=== PATIENT | male | born 1935 | race Caucasian/White ===

== ENCOUNTER 2017-05-29 11:27 | Emergency (ER) | payer BC, MEDICARE ==
--- NOTE | 2017-05-29 12:23 | RAD ---
INDICATION: Intracranial injury COMPARISON: None TECHNIQUE: Noncontrast axial source images were acquired from the skull base to the vertex. FINDINGS: Ventricles/sulci: There is mild age-related cortical atrophy with compensatory dilatation of the CSF spaces. Brain parenchyma: There is no focal parenchymal finding, evidence of intracranial mass, or intracranial mass effect. Intracranial hemorrhage:None. Extra-axial spaces: There are no abnormal extra axial fluid collections or evidence of extra-axial mass. Calvarium: There is no calvarial fracture or other calvarial abnormality. Scalp: There is no evidence of scalp or extracalvarial soft tissue abnormality. Paranasal sinuses/mastoid: The paranasal sinuses and mastoid air cells are clear. Other: Incidental bilateral basal ganglia calcifications. IMPRESSION: No acute intracranial findings
[2017-05-29 13:01] VITALS: BP 160/77
--- NOTE | 2017-05-29 16:40 | ED ---
Head Injury - HPI Summary HPI Summary: Patient is an otherwise healthy 81-year-old male who presents to the ED after a fall while skiing approximately 3 hours prior to arrival. Head injury is to the left parietal area without lesions, discolorations, or cephalohematoma. Immediately following the incident, he endorses some confusion on where he was. This lasted a few minutes. at bedside states he was unable to recall which trail he was on and even stated that he was slightly confused. Denies any memory loss, or loss of consciousness. He is not on blood thinners and denies any other injury with the fall. Denies sensitivity to light, headache, neck pain. Symptoms were aggravated by nothing and alleviated with spontaneous resolution prior to arrival to the ED. He is asymptomatic on arrival. - History Of Current Complaint Chief Complaint: EDHeadInjury Stated Complaint: FALL SKIING Time Seen by Provider: 05/29/17 11:46 Hx Obtained From: Patient, Family/[employer] Mechanism Of Injury: Direct Blow Onset/Duration: Started Hours Ago Onset of Pain: Minutes Severity Currently: Moderate Severity Initially: Moderate Pain Intensity: 0 Pain Scale Used: 0-10 Numeric Location of Head Injury: Parietal - Left Aggravating Factor(s): Other: - Nothing nothing Alleviating Factor(s): Rest Associated Signs And Symptoms: Confusion - Immediately following the incident, spontaneously resolved after several minutes, Other: - Dizziness, spontaneously resolved - Risk Factors SDH Risk Factor: Male, Recent Trauma - Allergies/Home Medications Allergies/Adverse Reactions: Allergies Allergy/AdvReac Type Severity Reaction Status Date / Time poison tyler extract Allergy Rash Verified 05/29/17 12:23 Home Medications: Home Medications NK [No Home Medications Reported] 05/29/17 [History Confirmed 05/29/17] PMH/Surg Hx/FS Hx/Imm Hx Previously Healthy: Yes - Cancer History Cancer Type, Location and Year: prostate, melanoma - Surgical History Surgery Procedure, Year, and Place: prostatectomy Infectious Disease History: No Infectious Disease History: Denies: Traveled Outside the [place] in Last 30 Days - Social History Occupation: Unemployed Lives: With Family Alcohol Use: Daily Hx Substance Use: No Substance Use Type: Reports: None Hx Tobacco Use: Yes Smoking Status (MU): Former Smoker Review of Systems Constitutional: Negative Negative: Fever, Chills, Fatigue, Skin Diaphoresis Negative: Photophobia, Blurred Vision, Diplopia Negative: Palpitations, Chest Pain Negative: Shortness Of Breath, Cough Negative: Arthralgia, Myalgia Negative: Bruising Negative: Headache, Weakness - dizziness which spontaneously resolved following the incident Psychological: Normal All Other Systems Reviewed And Are Negative: Yes Physical Exam Triage Information Reviewed: Yes Vital Signs On Initial Exam: Initial Vitals Temp Pulse Resp BP Pulse Ox 97.8 F 54 18 184/75 97 05/29/17 11:33 05/29/17 11:33 05/29/17 11:33 05/29/17 11:33 05/29/17 11:33 Vital Signs Reviewed: Yes Appearance: Positive: Well-Appearing, Well-Nourished Skin: Positive: Warm, Skin Color Reflects Adequate Perfusion Head/Face: Positive: Normal Head/Face Inspection Eyes: Positive: EOMI, YO, Conjunctiva Clear Neck: Positive: Nontender, No Lymphadenopathy Respiratory/Lung Sounds: Positive: Breath Sounds Present Cardiovascular: Positive: RRR, Pulses are Symmetrical in both Upper and Lower Extremities Musculoskeletal: Positive: Strength/ROM Intact Neurological: Positive: Speech Normal Psychiatric: Positive: Affect/Mood Appropriate AVPU Assessment: Alert Diagnostics - Vital Signs Vital Signs Temp Pulse Resp BP Pulse Ox 05/29/17 13:00 98.9 F 64 16 160/77 98 05/29/17 11:33 97.8 F 54 18 184/75 97 - Laboratory Lab Statement: Any lab studies that have been ordered have been reviewed, and results considered in the medical decision making process. Head Injury Course/Dx Course Of Treatment: According to [place] CT Head Rules, CT was obtained d/t age over 64 years old. The following shows likely negative for bleeding, but due to age, CT was obtained. GCS score >15 at 2h post injury. No suspected open or depressed skull fx, no sign of basal skull fx, no hemotympanum, raccoon eyes, Battles sign, CSF juan c-/rhinorrhea, no emesis after injury, age <64yo, no amnesia greater than 30 minutes prior to trauma, and mechanism of injury was minimal impact with no MVA or fall greater than 3 ft. Complete neuro exam completed and WNL. Normal head/face inspection with no cephalohematoma. Reflexes intact. EOMI, YO, visual acuity intact. No obvious confusion or memory loss per patient and family. MMSE OK. GCS 15. Patient oriented to person, place and date. No obvious deformity or signs of trauma. Finger to nose , heel to toe OK. Speech normal, facial symmetry, normal gait, CN II-III intact. Patient denies LOC. ROM, strength, reflexes in upper and lower extremity intact, sensation intact. Patient discharged with return precautions and post-concussive symptoms explained to patient. Patient agrees to follow up and return if needed. - Diagnoses Differential Diagnosis/HQI/PQRI: Concussion Without LOC Provider Diagnoses: Injury of head Discharge - Discharge Plan Condition: Stable Disposition: HOME Patient Education Materials: Head Injury (ED) Referrals: Rosales Angeles MD [Primary Care Provider] - Additional Instructions: Please call your doctor today for a follow-up visit As discussed, there was no abnormalities shown on the CT scan Brain rest is indicated until you begin to feel better
== END 2017-05-29 13:00 | disposition home or self-care (01) ==
LOC: ED 11:27
DX: S09.90XA Unspecified injury of head, initial encounter (principal); V00.321A Fall from snow-skis, initial encounter; Y93.23 Activity, snow (alpine) (downhill) skiing, snowboarding, sledding, tobogganing and snow tubing; Y92.9 Unspecified place or not applicable; Z87.891 Personal history of nicotine dependence
CPT/HCPCS: 70450; 99282